=== PATIENT | female | born 1975 | race Caucasian/White ===

== ENCOUNTER → 2021-01-29 15:50 | Outpatient (BNVA) | payer BC, MEDICAID, SELFPAY | PROVIDERS: Visit Provider Obstetrics & Gynecology | DX: N89.8 Other specified noninflammatory disorders of vagina (principal); Z12.4 Encounter for screening for malignant neoplasm of cervix | CPT/HCPCS: 87481; 87512; 87798; 87799; 88175 ==

== ENCOUNTER → 2021-02-17 15:05 | Outpatient (BNVA) | payer BC, MEDICAID, SELFPAY | PROVIDERS: Visit Provider Obstetrics & Gynecology | DX: N85.2 Hypertrophy of uterus (principal); N83.201 Unspecified ovarian cyst, right side | CPT/HCPCS: 76830 ==

== ENCOUNTER 2021-08-11 08:52 | Outpatient (CLI) | payer BC, MEDICAID, SELFPAY ==
--- NOTE | 2021-08-11 09:06 | XR_ITS ---
WS: [id number] XR lumbar spine 2-3V* [id number] REASON FOR EXAM: chronic low back pain with bilateral sciatica FINDINGS: Normal AP and lateral lumbar curvature. No vertebral body compression deformity or focal lesion. Small anterior osteophytes. Intervertebral disc spaces are relatively well-preserved. No significant spondylolisthesis listhesis. No spondylolysis. XR/XR lumbar spine 2-3V* [id number] IMPRESSION: Mild changes of degenerative spondylosis.
[2021-08-11 09:11] LABS: Basophils # 0.1 10^3/uL (0.0-0.1); Basophils % 1.2 %; Eosinophils # 0.3 10^3/uL (0.0-0.8); Eosinophils % 2.9 %; Hematocrit 42.8 % (37.0-47.0); Lymphocytes # 4.1 10^3/uL (0.8-4.8); Lymphocytes % 43.4 %; Mean Corpuscular HGB Conc 32.7 g/dL (30.0-36.0); Mean Corpuscular Hemoglobin 31.5 pg (28.0-34.0); Mean Corpuscular Volume 96.4 fl (81-99); Mean Platelet Volume 9.8 fL (7.4-10.4); Monocytes # 0.6 10^3/uL (0.2-0.9); Monocytes % 6.4 %; Nucleated Red Blood Cells % 0 %; Platelet Count 453 10^3/cmm (130-400); Red Blood Count 4.44 10^6/uL (4.1-5.3); Red Cell Distribution Width 13.5 % (12.1-15.1); White Blood Count 9.4 10^3/uL (4.0-10.0)
[2021-08-11 09:48] LABS: Alanine Aminotransferase 21 U/L (0-33); Albumin Level 4.2 g/dL (3.5-5.2); Alkaline Phosphatase 68 IU/L (35-105); Aspartate Amino Transferase 17 U/L (0-32); Blood Urea Nitrogen 14 mg/dL (6-20); Calcium 9.7 mg/dL (8.5-10.5); Carbon Dioxide 25 mmol/L (22-29); Chloride 105 mmol/L (98-107); Chol HDL Ratio 4.52 mg/dL (0.0-4.40); Cholesterol 235 mg/dL (0-200); Globulin 2.8 g/dL (1.3-4.6); Glucose 122 mg/dL (65-115); HDL Cholesterol 52 mg/dL (60-100); LDL Cholesterol Calculated 131 mg/dL (50-129); LDL HDL Ratio 2.52 RATIO (0.00-3.22); Osmolality Calculated 290 mOsm/kg (285-295); Sodium 139 mmol/L (136-145); Total Bilirubin 0.3 mg/dL (0.15-1.2); Triglycerides 258 mg/dL (0-150)
[2021-08-11 10:37] LABS: Estmated Average Glucose 126
== END 2021-08-11 08:53 | disposition home or self-care (01) ==
LOC: LAB 08:54
PROVIDERS: PCP Family Medicine; Visit Provider Family Medicine
DX: Z13.6 Encounter for screening for cardiovascular disorders (principal); E66.9 Obesity, unspecified; M54.41 Lumbago with sciatica, right side; M54.42 Lumbago with sciatica, left side
CPT/HCPCS: 72100; 80053; 80061; 83036; 85025

== ENCOUNTER 2021-09-22 14:25 | Observation (INO) | payer BC, MEDICAID, SELFPAY ==
[2021-09-21 15:28] VITALS: BMI 38.7
[2021-09-22] VITALS (17 sets, daily range): BP systolic 109–160; BP diastolic 72–98; PULSE 69–108; RESP 15–22; TEMP 36.1–36.6; O2SAT 91–97
[2021-09-22] MEDS: sodium chloride 0.9% 1,000 ML 30 ML IV (09:18)
[2021-09-22] MEDS: ketorolac 30 mg/mL INJ IVP ×2 (09:18→17:55)
[2021-09-22] MEDS: acetaminophen 1,000 MG/100 ML PIGGYBACK 400 MG IV (09:19)
[2021-09-22] MEDS: scopolamine 1.5 Patch 1 PATCH TRANSDERMA (09:20)
[2021-09-22] MEDS: gabapentin 300 mg Capsule PO (09:23)
[2021-09-22] MEDS: CELEcoxib 200 mg Capsule 400 MG PO (09:24)
--- NOTE | 2021-09-22 09:32 | ANES.PREANE2 ---
Pre-Anesthetic Assessment Height/Weight: Height 1.68 m Weight 108.862 kg Temp Pulse Resp BP Pulse Ox 97.0 F L 92 18 145/88 97 09/22/21 09:03 09/22/21 09:03 09/22/21 09:03 09/22/21 09:03 09/22/21 09:03 Preop Diagnosis: enlarged uterus, irregular menses, pelvic pain Operation Date: 09/22/21 10:35 Proposed Procedures p [facility]AVH 38505/n85.2/r10.2/n92.6(Not Applicable) - Rosmery Hartman MD s Salpingectomy(Bilateral) - Rosmery Hartman MD Familial anesthetic complications: None Last intake: Intake Last Liquid Date 09/22/21 Last Liquid Time 08:00 Last Solid Date 09/21/21 Last Solid Time 23:00 Social Tobacco and No alcohol Exam alert, oriented x 3, clear to auscultation bilaterally and regular rate & rhythm Airway Submandibular: within normal limits Cervical ROM: within normal limits Mallampati: Class II Dentition: full Comments: Comments: Has a crown Hx of b/l osteotomy of mandible to extend length of deformed jaw Previously had prolonged dental procedure and took about 2 weeks to return to relax and be pain free History/ROS No significant complaints Pulmonary None reported CV/HEM None reported METS > 4 None reported Hepatic None reported GI None reported Metabolic None reported Musc/skel Fibromyalgia and Osteoarthritis/DJD Neuropsych Bipolar and Neuropathy ADHD Anesthetic Plan ASA status: 2 Other: We discussed risk and benefits of general anesthesia including PONV, sore throat (sometimes severe), corneal abrasion, positioning and peripheral nerve injuries, life threatening allergic reaction, post operative ICU admission requiring prolonged intubation, stroke, heart attack, , and rare incidences of recall. Patient consents to proceed with general anesthesia. Plan GETA with gentle jaw manipulation due to hx of osteotomy of b/l mandible Risk of > 500 ml blood loss (7ml/kg in children): No Medications/Allergies Home Medications Medication Instructions Recorded Confirmed Last Taken Type acetaminophen 500 mg tablet 500 mg PO Q6H PRN 02/26/21 09/22/21 09/21/21 History (Tylenol Extra Strength) ibuprofen 200 mg capsule 200 mg PO Q6H PRN 09/14/21 09/22/21 09/19/21 History naproxen sodium 220 mg capsule 220 mg PO BID PRN 09/14/21 09/22/21 09/19/21 History (Aleve) Allergies Allergy/AdvReac Type Severity Reaction Status Date / Time diphenhydramine Allergy Intermediate hives Verified 09/22/21 08:58 [From Benadryl] egg Allergy Intermediate stomach Verified 09/22/21 08:58 cramps and pains Estrogens Allergy Intermediate migraines Verified 09/22/21 08:58 Influenza Virus Vaccines Allergy Intermediate stomach Verified 09/22/21 08:58 cramps and pains Penicillins Allergy Intermediate fever, Verified 09/22/21 08:58 vomiting Sulfa (Sulfonamide Allergy Mild rash Verified 09/22/21 08:58 Antibiotics) avocado Allergy stomach Verified 09/22/21 08:58 pains and cramps erythromycin base Allergy ALGY-Rash Verified 09/22/21 08:58 Current Medications Generic Name Dose Route Start Last Admin Trade Name Freq PRN Reason Stop Dose Admin Sodium Chloride 1,000 mls @ 30 mls/hr 09/22/21 09:15 09/22/21 09:18 Sodium Chloride 0.9% IV 09/23/21 09:14 30 mls/hr .Q24H AYESHA Administration PFSH Anesthesia Medical History ADHD Bipolar disorder Bulging disc L4 and L5 Degenerative disc disease Lumbar spine Fibromyalgia Psychiatric care Synovial cyst Vertebral L5 Surgical History History of x2 History of cryosurgery 1999 History of mandibular surgery 1993 History of tubal ligation Family History Father CAD (coronary artery disease) Cancer lung, prostate, melanoma Chronic kidney disease (CKD) Diabetes Hyperlipidemia Hypertension Grandfather Cancer Maternal Family/Other Breast cancer Maternal aunt Mother Dementia Alzheimers disease Denies family history of Bleeding disorder Stroke Data Anesthesia Cardiac Studies: No Data to Display
[2021-09-22 09:54] LABS: OR HCG Qualitative Urine Negative (Negative)
[2021-09-22 10:31] LABS: Basophils # 0.1 10^3/uL (0.0-0.1); Eosinophils # 0.3 10^3/uL (0.0-0.8); Eosinophils % 2.9 %; Hematocrit 44.6 % (37.0-47.0); Lymphocytes # 3.4 10^3/uL (0.8-4.8); Lymphocytes % 34.6 %; Mean Corpuscular HGB Conc 33.6 g/dL (30.0-36.0); Mean Corpuscular Hemoglobin 31.1 pg (28.0-34.0); Mean Corpuscular Volume 92.3 fl (81-99); Mean Platelet Volume 10.9 fL (7.4-10.4); Monocytes # 0.6 10^3/uL (0.2-0.9); Monocytes % 6.2 %; Neutrophils # 5.45 10^3/uL (1.8-7.7); Neutrophils % 55.1 %; Nucleated Red Blood Cells % 0 %; Platelet Count 459 10^3/cmm (130-400); Red Blood Count 4.83 10^6/uL (4.1-5.3); Red Cell Distribution Width 13.1 % (12.1-15.1); White Blood Count 9.9 10^3/uL (4.0-10.0)
--- NOTE | 2021-09-22 11:01 | P.HPUD_ITS ---
Surgery/Procedure H&P Update DATE OF PROCEDURE: September 22, 2021 DATE H&P PERFORMED: 09/14/21 H&P UPDATE INFORMATION: I have reviewed H&P completed within last 30 days, I have examined patient prior to procedure and No changes to prior documentation PREOP DIAGNOSIS: enlarged uterus, irregular menses, pelvic pain PLANNED PROCEDURE: Operation Date: 09/22/21 10:35 Proposed Procedures p [facility] 81834/n85.2/r10.2/n92.6(Not Applicable) - Rosmery Hartman MD s Salpingectomy(Bilateral) - Rosmery Hartman MD Related Problem List Diagnoses (1) Pelvic pain: (2) Enlarged uterus: (3) Obesity (BMI 35.0-39.9 without comorbidity):
[2021-09-22 11:15] LABS: Anion Gap 15.9 (5-19); Blood Urea Nitrogen 11 mg/dL (6-20); Carbon Dioxide 23 mmol/L (22-29); Chloride 104 mmol/L (98-107); Glomerular Filtration Rate 108.6 mL/min (90-130); Glucose 121 mg/dL (65-115); Osmolality Calculated 289 mOsm/kg (285-295); Potassium 3.9 mmol/L (3.5-5.1); Sodium 139 mmol/L (136-145)
[2021-09-22] MEDS: vasopressin 20 unit/mL INJ 4 UNIT INJECTION (13:11)
--- NOTE | 2021-09-22 14:02 | P.OP_ITS ---
Operative Report Date of procedure: September 22, 2021 Pre-op diagnosis: Preop Diagnosis enlarged uterus, irregular menses, pelvic pain Post-op diagnosis: same Post-op findings: 9 week sized uterus, pelvic adhesions Procedure done: LAVH, bilateral salpingectomy Specimens removed/disposition: uterus, bilateral fallopian tubes to pathology Surgeon: Rosmery Hartman Anesthesia: General Estimated blood loss (mL): 100 IV fluids (mL): 1,500 Urine output (mL): 100 Complications: none Findings: 9 week sized uterus, pelvic adhesions of omentum and adnexae. taken down with cautery Condition: stable Disposition: PACU Procedure: The patient was taken to the operating room where general anesthesia was administered and found to be adequate. She was prepped and draped in the normal sterile fashion in the dorsal lithotomy position in Davin stirrups. A Rubio catheter was placed. A weighted speculum was placed into the vagina and the anterior lip of the cervix was grasped with a single tooth tenaculum. The Zumi uterine manipulator was placed. The weighted speculum was removed. The gloves were changed and attention was turned to the abdomen. A 5 mm infraumbilical incision was made. Using a 5 mm port with the camera, the port was placed into the abdomen. The abdomen was insufflated. Two low, lateral 5 mm ports were placed on the left and right under direct visualization from the camera. A few minor adhesions were taken down to normalize the pelvis. The right tube was grasped and elevated. Using the laparoscopic cautery, the mesosalpinx was divided between the ovary and tube. The tube was removed. This was performed the same way on the left. The uteroovarian ligaments as well as the round ligaments were ligated. Attention was then turned to the vaginal portion of the procedure. The weighted speculum was placed into the vagina. The zumi manipulator was removed. The single tooth tenaculum was removed and replaced with the zandra's tenaculum. 10 mL of dilute Pitressin was injected at the vesicovaginal junction. A circumferential incision was made at the vesicovaginal junction and the vaginal mucosa reflected cephalad. The posterior peritoneum was entered sharply with the Metzenbaum scissors and the long weighted speculum replaced. Using the Andrew clamps the uterosacral ligaments were clamped cut and suture- ligated. The anterior peritoneum was entered sharply with the metzenbaum scissors. Then sequentially the uterine arteries and cardinal ligaments were clamped cut and suture-ligated. A single-tooth tenaculum was used to deliver the uterus. The remaining segement of the utero-ovarian ligaments were clamped cut and suture-ligated bilaterally and the specimen was removed. There was good hemostasis with only mild bleeding from the cuff. The peritoneum was closed with a pursestring using 2-0 Vicryl. The vaginal cuff was closed with 0 Vicryl in a running locked pattern incorporating the uterosacral ligaments into the lateral aspects of the vaginal cuff. The Rubio catheter was removed and the cystoscope advanced into the bladder. The patient was given pyridium and bilateral spill was noted. There were no injuries or deficits noted in the bladder. The cystoscope was removed and the Rubio was replaced. Vaginal packing was placed for good hemostasis. The trocars were removed from the abdomen. The incisions were closed with 4-0 vicryl and skin glue. The patient tolerated the procedure well. Sponge lap and needle counts were correct x3. She was taken to the recovery room in stable condition.
--- NOTE | 2021-09-22 14:07 | SUR.PHASEI ---
1358 PT TO PACU 5 PT SLEEPS WITH ORAL AIRWAY IN PLACE , GOOD RESP EFFORT NOTED VSS ABDOMEN SOFT WITH 3 SITES WITH SKIN GLUE, VAGINAL PACKING IN PLACE, BILAT SCDS ON AND WORKING VIEIRA TO DD WITH SMALL AMT YELLOW URINE NOTED TO TUBING AND BAG, STATLOCK TO RT INNER THIGH, IV TO LT HAND #18 WITH NS 200ML UP AT MOD RATE PER GRAVITY. IV #20 TO LT FOREARM PIID. PT ID BRACELET TO RT WRIST PT ID'D WITH 2 IDENTIFIERS, WARM BLANKETS TO PT X 2.
--- NOTE | 2021-09-22 14:29 | SUR.PHASEI ---
PT AWAKES TO TOUCH, ORAL AIRWAY OUT, PT DOES NOT SPEAK OR FOLLOW COMMAND, QUICKLY BACK TO SLEEP WITH GOOD RESPIRATORY EFFORT, VSS.
--- NOTE | 2021-09-22 14:37 | SUR.PHASEI ---
PT AWAKES AND ASKS FOR ICE CHIPS, VSS, PT DENIES PAIN AND NAUSEA, PT PLACED ON 3LNC
[2021-09-22] MEDS: dextrose 5%-lactated ringers 1,000 ML 125 ML IV (15:31)
--- NOTE | 2021-09-22 17:45 | ANE.PACU2 ---
Inpatient post-anesthesia follow up: Airway intact: Yes Vital signs: Temperature 97.7 F Pulse Rate 72 Respiratory Rate 18 Blood Pressure 143/98 Pulse Oximetry 94 Oxygen Delivery Me thod Nasal Cannula Oxygen Flow Rate 3 Fraction of Inspir ed Oxygen Hydration adequate: Yes Nausea and vomiting: No Pain level: 1 Mental status: Baseline
[2021-09-22] MEDS: phenazopyridine 100 mg Tablet 200 MG PO ×2 (17:55→21:11)
[2021-09-22] MEDS: docusate sodium 100 mg Capsule PO (17:56)
[2021-09-22] MEDS: nicotine 14 mg Patch 1 PATCH TRANSDERMA (17:56)
[2021-09-22] MEDS: acetaminophen 325 mg Tablet 650 MG PO (21:12)
[2021-09-23] MEDS: ketorolac 30 mg/mL INJ IVP (00:26)
[2021-09-23 05:15] VITALS: BP 154/81; PULSE 82; TEMP 36.8; O2SAT 95
[2021-09-23 05:33] LABS: Hematocrit 41.5 % (37.0-47.0); Hemoglobin 13.6 g/dL (11.5-15.3); Mean Corpuscular HGB Conc 32.8 g/dL (30.0-36.0); Mean Corpuscular Hemoglobin 31.1 pg (28.0-34.0); Mean Corpuscular Volume 94.7 fl (81-99); Mean Platelet Volume 10.3 fL (7.4-10.4); Platelet Count 415 10^3/cmm (130-400); Red Blood Count 4.38 10^6/uL (4.1-5.3); Red Cell Distribution Width 12.9 % (12.1-15.1); White Blood Count 21.7 10^3/uL (4.0-10.0)
[2021-09-23] MEDS: docusate sodium 100 mg Capsule PO (09:05)
[2021-09-23] MEDS: ibuprofen 800 mg tablet PO (09:06)
[2021-09-23] MEDS: phenazopyridine 100 mg Tablet 200 MG PO (09:10)
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
[2021-09-23 11:00] VITALS: BP 133/84; PULSE 89; RESP 16; TEMP 36.8; O2SAT 98
== END 2021-09-23 11:00 | disposition home or self-care (01) ==
LOC: OBGYN 14:42
PROVIDERS: Admitting Provider Obstetrics & Gynecology; PCP Family Medicine; Visit Provider Obstetrics & Gynecology
PROC: 0UT9FZZ Resection of Uterus, Via Natural or Artificial Opening With Percutaneous Endoscopic Assistance (ICD-10-PCS; CPT 58552; principal; 2021-09-22 10:25)
PROC: (CPT 58700; 2021-09-22 10:25)
DX: R10.2 Pelvic and perineal pain (principal); N85.2 Hypertrophy of uterus; E66.9 Obesity, unspecified; Z68.38 Body mass index [BMI] 38.0-38.9, adult; M79.7 Fibromyalgia; Z82.49 Family history of ischemic heart disease and other diseases of the circulatory system; Z83.3 Family history of diabetes mellitus
CPT/HCPCS: 58552; 36415; 80048; 81025; 84703; 85025; 85027; 86850; 86900; 87086; 88307; G0378; J0690; J1100; J1170; J1200; J1885; J1940; J2250; J2405; J3010; J3490; J7030

== ENCOUNTER → 2021-10-02 11:24 | Outpatient (BNVA) | payer BC, MEDICAID, SELFPAY | PROVIDERS: PCP Family Medicine; Visit Provider Psychiatry & Neurology Psychiatry | DX: F90.9 Attention-deficit hyperactivity disorder, unspecified type (principal); F43.20 Adjustment disorder, unspecified | CPT/HCPCS: 90792 ==

== ENCOUNTER 2021-10-15 15:36 | Outpatient (CLI) | payer BC, MEDICAID, SELFPAY ==
--- NOTE | 2021-10-15 16:00 | MR_ITS ---
WS: [id number] MRI LUMBAR SPINE NONCONTRAST HISTORY: low back pain with sciatica COMPARISON: None available. TECHNIQUE: Sagittal and axial multisequence imaging is submitted. Normal lumbar alignment with no compression fractures or marrow edema. Mild disc desiccation at L4-5 without loss of height. Conus terminates normally at L1-2 disc level. L1-L2: Normal. L2-L3: Normal. L3-L4: Very minimal disc bulging. No stenosis. L4-L5: Mild annular disc bulging without focal disc protrusion. Mild ligamentum flavum hypertrophy an d facet arthritis. There is mild encroachment into the neural foramen and subarticular recesses. Very minimal encroachment upon the traversing L5 nerve roots but no displacement. L5-S1: Mild annular disc bulging with no stenosis. MR/MR lumbar spine wo con* [id number] IMPRESSION: 1. No high-grade stenosis. 2. Very minimal encroachment upon the traversing L5 nerve roots. No displaceme nt or high-grade stenosis. 3. Minimal disc desiccation at L4-5.
== END 2021-10-15 15:37 | disposition home or self-care (01) ==
LOC: RAD 15:38
PROVIDERS: PCP Family Medicine; Visit Provider Family Medicine
DX: M51.26 Other intervertebral disc displacement, lumbar region (principal); M54.40 Lumbago with sciatica, unspecified side
CPT/HCPCS: 72148

== ENCOUNTER → 2021-11-04 10:21 | Outpatient (BNVA) | payer BC, MEDICAID, SELFPAY | PROVIDERS: PCP Family Medicine; Visit Provider Anesthesiology Pain Medicine | DX: M47.816 Spondylosis without myelopathy or radiculopathy, lumbar region (principal); M51.16 Intervertebral disc disorders with radiculopathy, lumbar region; M79.604 Pain in right leg; M79.605 Pain in left leg; F17.210 Nicotine dependence, cigarettes, uncomplicated | CPT/HCPCS: 99204 ==

== ENCOUNTER → 2021-11-25 12:59 | Outpatient (BNVA) | payer BC, MEDICAID, SELFPAY | PROVIDERS: PCP Family Medicine; Visit Provider Anesthesiology Pain Medicine | DX: F17.210 Nicotine dependence, cigarettes, uncomplicated (principal); M47.816 Spondylosis without myelopathy or radiculopathy, lumbar region | CPT/HCPCS: 64493; 64494; 64495; J3490 ==

== ENCOUNTER → 2021-12-09 12:49 | Outpatient (BNVA) | payer BC, MEDICAID, SELFPAY | PROVIDERS: PCP Family Medicine; Visit Provider Anesthesiology Pain Medicine | DX: F17.210 Nicotine dependence, cigarettes, uncomplicated (principal); M47.816 Spondylosis without myelopathy or radiculopathy, lumbar region | CPT/HCPCS: 64493; 64494; 64495; J3490 ==

== ENCOUNTER 2021-12-17 13:40 | Outpatient (CLI) | payer BC, MEDICAID, SELFPAY ==
--- NOTE | 2021-12-17 13:50 | XRR_ITS ---
PROCEDURE INFORMATION: Exam: XR Right Shoulder Exam date and time: 12/17/2021 1:56 PM Age: 46 years old Clinical indication: Pain; Shoulder; Right; Additional info: Chronic right shoulder pain TECHNIQUE: Imaging protocol: Radiologic exam of the Right shoulder. Views: 2 or more views. COMPARISON: No relevant prior studies available. FINDINGS: Bones/joints: Normal. Soft tissues: Normal. XR/XR shoulder RT min 2V* [id number] IMPRESSION: No acute findings.
== END 2021-12-17 13:41 | disposition home or self-care (01) ==
PROVIDERS: PCP Family Medicine; Visit Provider Family Medicine
DX: M25.511 Pain in right shoulder (principal); G89.29 Other chronic pain
CPT/HCPCS: 73030

== ENCOUNTER → 2021-12-23 10:51 | Outpatient (BNVA) | payer BC, MEDICAID, SELFPAY | PROVIDERS: PCP Family Medicine; Visit Provider Anesthesiology Pain Medicine | DX: M79.604 Pain in right leg (principal); M79.605 Pain in left leg; F17.210 Nicotine dependence, cigarettes, uncomplicated; M47.816 Spondylosis without myelopathy or radiculopathy, lumbar region; M51.16 Intervertebral disc disorders with radiculopathy, lumbar region | CPT/HCPCS: 99214 ==

== ENCOUNTER → 2021-12-28 15:23 | Outpatient (BNVA) | payer BC, MEDICAID, SELFPAY | PROVIDERS: PCP Family Medicine; Visit Provider Obstetrics & Gynecology | DX: R39.9 Unspecified symptoms and signs involving the genitourinary system (principal) | CPT/HCPCS: 81000; 87070; 87075; 87205 ==

== ENCOUNTER → 2022-01-04 12:52 | Outpatient (BNVA) | payer BC, MEDICAID, SELFPAY | PROVIDERS: PCP Family Medicine; Referring Provider Family Medicine; Visit Provider Specialist | DX: R20.0 Anesthesia of skin (principal); R20.2 Paresthesia of skin | CPT/HCPCS: 95908; 95909 ==

== ENCOUNTER → 2022-01-06 14:16 | Outpatient (BNVA) | payer BC, MEDICAID, SELFPAY | PROVIDERS: PCP Family Medicine; Visit Provider Orthopaedic Surgery | DX: M19.011 Primary osteoarthritis, right shoulder (principal) | CPT/HCPCS: 99203 ==

== ENCOUNTER → 2022-01-20 13:18 | Outpatient (BNVA) | payer BC, MEDICAID, SELFPAY | PROVIDERS: PCP Family Medicine; Visit Provider Anesthesiology Pain Medicine | DX: F17.210 Nicotine dependence, cigarettes, uncomplicated (principal); M47.816 Spondylosis without myelopathy or radiculopathy, lumbar region | CPT/HCPCS: 64635; 64636 ==

== ENCOUNTER → 2022-02-24 07:35 | Outpatient (BNVA) | payer BC, SELFPAY | PROVIDERS: PCP Family Medicine; Visit Provider Family Medicine | DX: E66.9 Obesity, unspecified (principal); F17.219 Nicotine dependence, cigarettes, with unspecified nicotine-induced disorders; F31.9 Bipolar disorder, unspecified; G57.93 Unspecified mononeuropathy of bilateral lower limbs; G89.29 Other chronic pain; R51.9 Headache, unspecified; R53.83 Other fatigue; Z76.89 Persons encountering health services in other specified circumstances; Z13.6 Encounter for screening for cardiovascular disorders | CPT/HCPCS: 80053; 80061; 83036; 84439; 84443; 85025; 85651; 86140 ==

== ENCOUNTER 2022-12-03 14:07 | Outpatient (CLI) | payer BC, SELFPAY ==
--- NOTE | 2022-12-03 14:11 | MM_ITS ---
WS: [id number] BILATERAL 3D TOMOSYNTHESIS DIGITAL SCREENING MAMMOGRAPHY WITH CAD CLINICAL INFORMATION: Z12.31 - Encounter for screening mammogram for malignant ... HISTORY: Screening mammogram. Bilateral breast soreness COMPARISON: 2019. TECHNIQUE: Bilateral CC and MLO views. FINDINGS: Scattered fibroglandular densities bilaterally. No suspicious focal mass, asymmetry, calcifications, or architectural distortion. No evidence of malignancy. Incidental punctate calcifications. Biopsy cl ip RIGHT breast. MM/[place] [id number] IMPRESSION: BI-RADS: 2-Benign FOLLOW UP: 1 Year Follow-up Recommend return to annual screening mammography.
== END 2022-12-03 14:08 | disposition home or self-care (01) ==
LOC: RAD 14:07
PROVIDERS: PCP Family Medicine; Visit Provider Obstetrics & Gynecology
DX: Z12.31 Encounter for screening mammogram for malignant neoplasm of breast (principal)
CPT/HCPCS: 77063; 77067

== ENCOUNTER 2023-02-09 09:43 | Outpatient (CLI) | payer BC, MEDICAID, SELFPAY ==
--- NOTE | 2023-02-09 09:49 | CT_ITS ---
WS: [id number] CT NECK TECHNIQUE: Contrast-enhanced CT of the neck with coronal and sagittal reformatted images. CLINICAL INFORMATION: LOCALIZED SWELLING,MASS LUMP, HEAD COMPARISON: None. DLP: 246.[address] scans at [facility] use at least one of these dose optimization techniques: automated e xposure control; mA and/or kV adjustment per patient size (includes targeted exams where dose is matc hed to clinical indication); or iterative reconstruction. FINDINGS: Paranasal sinuses are well aerated. Mastoid air cells are well aerated. Normal posterior nasopharynx. Normal parapharyngeal fat. Parotid glands are normal. Normal submandibular glands. No evidence of henley praglottic or glottic mass. Normal subglottic airway. Normal thyroid gland enhancement. Deep to the palpable marker overlying the RIGHT mandible normal underlying vessels. No evidence of henley bcutaneous mass or lesion. No suspicious findings in this area. Normal underlying mandible with posto perative changes. Prominent 11 mm LEFT jugulodigastric lymph node within normal limits. Few prominent submandibular spa ce lymph nodes. No pathologic cervical lymphadenopathy. IMPRESSION: 1. Deep to the palpable marker overlying the RIGHT mandible normal underlying vessels and soft tissu es. No suspicious lesions in this area. 2. Normal salivary glands. 3. No evidence of supraglottic or glottic mass. 4. A few prominent upper cervical chain lymph nodes likely reactive. Largest LEFT jugulodigastric me asuring 11 mm in short axis dimension. 5. No other suspicious findings.
[2023-02-09] MEDS: iohexol 350 mg/mL 500 mL Btl (per mL) IV (10:44)
== END 2023-02-09 09:44 | disposition home or self-care (01) ==
PROVIDERS: PCP Family Medicine; Visit Provider Specialist
DX: R22.0 Localized swelling, mass and lump, head (principal)
CPT/HCPCS: 70491; Q9967

== ENCOUNTER 2023-05-09 07:36 | Outpatient (CLI) | payer BC, SELFPAY ==
--- NOTE | 2023-05-09 07:42 | XR_ITS ---
WS: [id number] Exam: XR thoracic spine 3V* [id number] Date/Time of Exam: 05/09/2023 7:55 AM Reason For Exam: M54.6 - Pain in thoracic spine No acute fracture or dislocation. No significant scoliosis. Normal paraspinal soft tissues. Minimal s pondylosis. IMPRESSION: 1. Minimal degenerative changes otherwise unremarkable T-spine study.
--- NOTE | 2023-05-09 07:42 | XR_ITS ---
WS: [id number] Exam: XR cervical spine 3V* [id number] Date/Time of Exam: 05/09/2023 7:55 AM Reason For Exam: M54.2 - Cervicalgia No fracture or dislocation. Cervical alignment is normal. Posterior elements are intact. Disc spaces are preserved. Normal paraspinal soft tissues. Hardware noted in the mandible. IMPRESSION: 1. Normal C-spine study.
--- NOTE | 2023-05-09 07:42 | XR_ITS ---
WS: [email or web address] Exam: XR lumbar spine min 4V [id number] Date/Time of Exam: 05/09/2023 7:55 AM Reason For Exam: M54.50 - Low back pain, unspecified Comparison 08/11/2021. No fracture or dislocation. Disc spaces are preserved. Posterior elements are intact. Slight spondylo sis. No flexion or extension instability. IMPRESSION: 1. Minimal degenerative change. No flexion or extension instability.
== END 2023-05-09 07:37 | disposition home or self-care (01) ==
LOC: RAD 07:37
PROVIDERS: PCP Family Medicine; Visit Provider Anesthesiology Pain Medicine
DX: M54.2 Cervicalgia (principal); G89.29 Other chronic pain; M47.814 Spondylosis without myelopathy or radiculopathy, thoracic region; M47.816 Spondylosis without myelopathy or radiculopathy, lumbar region
CPT/HCPCS: 72040; 72072; 72110

== ENCOUNTER → 2023-05-10 11:21 | Outpatient (BNVA) | payer BC, SELFPAY | PROVIDERS: PCP Family Medicine; Visit Provider Family Medicine | DX: E78.2 Mixed hyperlipidemia (principal); R73.09 Other abnormal glucose; Z12.11 Encounter for screening for malignant neoplasm of colon | CPT/HCPCS: 80053; 80061; 83036; 84443; 85025 ==

== ENCOUNTER → 2023-05-12 16:58 | Outpatient (BNVA) | payer BC, SELFPAY | PROVIDERS: PCP Family Medicine; Visit Provider Obstetrics & Gynecology | DX: E78.2 Mixed hyperlipidemia (principal) | CPT/HCPCS: 83001 ==

== ENCOUNTER → 2023-07-24 11:17 | Outpatient (BNVA) | payer BC, SELFPAY | PROVIDERS: PCP Family Medicine; Visit Provider Nurse Practitioner | DX: J02.9 Acute pharyngitis, unspecified (principal) | CPT/HCPCS: 87071; 87880 ==

== ENCOUNTER → 2023-08-09 13:48 | Outpatient (BNVA) | payer BC, SELFPAY | PROVIDERS: PCP Family Medicine; Visit Provider Nurse Practitioner Psychiatric/Mental Health | DX: F90.0 Attention-deficit hyperactivity disorder, predominantly inattentive type (principal); Z79.899 Other long term (current) drug therapy | CPT/HCPCS: 80307 ==

== ENCOUNTER 2023-08-11 09:18 | Day surgery (SDC) | payer BC, MEDICAID, SELFPAY ==
--- NOTE | 2023-08-11 09:09 | P.HP_ITS ---
Same Day Surgery H&P Indication for Procedure/HPI DATE OF PROCEDURE: August 11, 2023 CHIEF COMPLAINT/INDICATIONFOR SURGICAL PROCEDURE: need for screening colonoscopy PREOP DIAGNOSIS: need for screening colonoscopy PLANNED PROCEDURE: Operation Date: 08/11/23 10:20 Proposed Procedures p [id number] colonoscopy G0121 screen colon a risk : Z12.11(Not Applicable) - Dusty Hopkins MD Medications/Allergies* Home Medications Medication Instructions Recorded Confirmed Type melatonin 5 mg tablet 2.5 mg PO DAILY PRN Sleep 05/18/22 08/09/23 History Allergies/Adverse Reactions Allergy/AdvReac Type Severity Reaction Status Date / Time diphenhydramine Allergy Intermediate hives Verified 08/09/23 12:54 [From Benadryl] egg Allergy Intermediate stomach Verified 08/09/23 12:54 cramps and pains Estrogens Allergy Intermediate migraines Verified 08/09/23 12:54 Influenza Virus Vaccines Allergy Intermediate stomach Verified 08/09/23 12:54 cramps and pains Penicillins Allergy Intermediate fever, Verified 08/09/23 12:54 vomiting Sulfa (Sulfonamide Allergy Mild rash Verified 08/09/23 12:54 Antibiotics) adhesive tape Allergy Unknown Unknown Verified 08/09/23 12:54 avocado Allergy stomach Verified 08/09/23 12:54 pains and cramps erythromycin base Allergy ALGY-Rash Verified 08/09/23 12:54 Pertinent History/Comorbid Conditions* Medical History (Updated 08/09/23 @ 13:31 by Abbey Guadarrama [facility]) Chronic post-traumatic stress disorder Autism spectrum disorder Nicotine dependence due to vaping tobacco product Generalized anxiety disorder with panic attacks ADHD (attention deficit hyperactivity disorder), inattentive type Diagnosed in 2008 Psychiatric care Bulging disc L4 and L5 Synovial cyst Vertebral L5 Fibromyalgia Degenerative disc disease Lumbar spine Surgical History (Updated 06/25/21 @ 10:49 by Caitlyn Benitez DO) History of mandibular surgery 1993 History of cryosurgery 1999 History of x2 History of tubal ligation Family History (Updated 06/25/21 @ 10:38 by Linda Coleman LPN) Diabetes Father CAD (coronary artery disease) Father Alzheimers disease Mother Dementia Mother Hyperlipidemia Father Chronic kidney disease (CKD) Father Breast cancer Family/Other Maternal aunt Cancer Father lung, prostate, melanoma Grandfather Maternal Hypertension Father Denies family history of Bleeding disorder Stroke Social History Smoking and tobacco/nicotine status: former use of tobacco/nicotine Quit status (tobacco/nicotine): considering quitting Second hand smoke exposure: No Alcohol intake: never Substance/Drug Use: former Pertinent Exam Findings alert, oriented x 3, clear to auscultation bilaterally and regular rate & rhythm Recommendations Surgery/Procedure today Coding Level of Care Code Acute Code for [facility] Brenda
[2023-08-11 09:21] VITALS: BP 143/94; PULSE 92; RESP 18; TEMP 36.1; O2SAT 91
[2023-08-11] MEDS: sodium chloride 0.9% 1,000 ML 30 ML IV (09:43)
--- NOTE | 2023-08-11 10:00 | ANES.PREANE2 ---
Pre-Anesthetic Assessment Height/Weight: Height 1.68 m Weight 111.13 kg Temp Pulse Resp BP Pulse Ox O2 Del Method 97.0 F L 92 18 143/94 91 Room Air 08/11/23 09:21 08/11/23 09:21 08/11/23 09:21 08/11/23 09:21 08/11/23 09:21 08/11/23 09:21 Preop Diagnosis: need for screening colonoscopy Operation Date: 08/11/23 10:20 [place] Procedures p [id number] colonoscopy G0121 screen colon a risk : Z12.11(Not Applicable) - Dusty Hopkins MD Was Beta Harvey taken within 24 hours: N/A Was Clonidine taken within 24 hours: N/A Last intake: Intake Last Liquid Date 08/10/23 Last Liquid Time 23:55 Last Solid Date 08/09/23 Last Solid Time 23:45 Last Intake: 22:00 Social No alcohol and No tobacco Exam alert, oriented x 3, clear to auscultation bilaterally and regular rate & rhythm Airway Submandibular: within normal limits Cervical ROM: within normal limits Mallampati: Class II History/ROS No significant history except as noted Pulmonary None reported CV/HEM None reported None reported hyst section x 2 Hepatic None reported GI None reported Metabolic None reported Musc/skel None reported jaw surgery right ganglion removal Neuropsych None reported Anesthetic Plan ASA status: 2 Anesthesia: MAC Risk of > 500 ml blood loss (7ml/kg in children): Yes, adequate IV access and fluids planned Medications/Allergies Home Medications Medication Instructions Recorded Confirmed Last Taken Type melatonin 5 mg tablet 2.5 mg PO DAILY PRN Sleep 05/18/22 08/09/23 08/09/23 History tizanidine 4 mg tablet 8 mg (2 x 4 mg) PO BID PRN muscle 04/25/23 08/09/23 Unknown Rx spasticity #60 tabs conjugated estrogens 0.45 mg 0.45 mg PO DAILY 12 months #90 tabs 07/21/23 08/09/23 08/10/23 Rx tablet (Premarin) dextroamphetamine-amphetamine ER 20 mg PO QAM 30 days #30 caps 08/09/23 08/11/23 08/10/23 Rx 20 mg 24hr capsule,extend release (Adderall XR) Allergies Allergy/AdvReac Type Severity Reaction Status Date / Time diphenhydramine Allergy Intermediate hives Verified 08/09/23 12:54 [From Benadryl] egg Allergy Intermediate stomach Verified 08/09/23 12:54 cramps and pains Estrogens Allergy Intermediate migraines Verified 08/09/23 12:54 Influenza Virus Vaccines Allergy Intermediate stomach Verified 08/09/23 12:54 cramps and pains Penicillins Allergy Intermediate fever, Verified 08/09/23 12:54 vomiting Sulfa (Sulfonamide Allergy Mild rash Verified 08/09/23 12:54 Antibiotics) adhesive tape Allergy Unknown Unknown Verified 08/09/23 12:54 avocado Allergy stomach Verified 08/09/23 12:54 pains and cramps erythromycin base Allergy ALGY-Rash Verified 08/09/23 12:54 Current Medications Generic Name Dose Route Start Last Admin Trade Name Freq PRN Reason Stop Dose Admin Sodium Chloride 1,000 mls @ 30 mls/hr 08/11/23 09:30 08/11/23 09:43 Sodium Chloride 0.9% IV 30 mls/hr .Q24H AYESHA Administration PFSH Anesthesia Medical History (Updated 08/09/23 @ 13:31 by Abbey Guadarrama, [facility]) Chronic post-traumatic stress disorder Autism spectrum disorder Nicotine dependence due to vaping tobacco product Generalized anxiety disorder with panic attacks ADHD (attention deficit hyperactivity disorder), inattentive type Diagnosed in 2007 Psychiatric care Bulging disc L4 and L5 Synovial cyst Vertebral L5 Fibromyalgia Degenerative disc disease Lumbar spine Surgical History History of mandibular surgery 1993 History of cryosurgery 1999 History of x2 History of tubal ligation Family History Father CAD (coronary artery disease) Cancer lung, prostate, melanoma Chronic kidney disease (CKD) Diabetes Hyperlipidemia Hypertension Grandfather Cancer Maternal Family/Other Breast cancer Maternal aunt Mother Dementia Alzheimers disease Denies family history of Bleeding disorder Stroke Social History Smoking and tobacco/nicotine status: former use of tobacco/nicotine Quit status (tobacco/nicotine): considering quitting Second hand smoke exposure: No Alcohol intake: never Substance/Drug Use: former Female Reproductive History Para: 3 Spontaneous abortions: No Data Anesthesia Cardiac Studies: No Data to Display
--- NOTE | 2023-08-11 10:03 | P.ANESASSM_ITS ---
Pre-Anesthetic Assessment Height/Weight: Height 1.68 m Weight 111.13 kg Temp Pulse Resp BP Pulse Ox O2 Del Method 97.0 F L 92 18 143/94 91 Room Air 08/11/23 09:21 08/11/23 09:21 08/11/23 09:21 08/11/23 09:21 08/11/23 09:21 08/11/23 09:21 Preop Diagnosis: need for screening colonoscopy Operation Date: 08/11/23 10:20 Proposed Procedures p [id number] colonoscopy G0121 screen colon a risk : Z12.11(Not Applicable) - Dusty Hopkins MD Was Beta Harvey taken within 24 hours: N/A Was Clonidine taken within 24 hours: N/A Last intake: Intake Last Liquid Date 08/10/23 Last Liquid Time 23:55 Last Solid Date 08/09/23 Last Solid Time 23:45 Last Intake: 22:00 Social No alcohol and No tobacco Exam alert, oriented x 3, clear to auscultation bilaterally and regular rate & rhythm Airway Submandibular: within normal limits Cervical ROM: within normal limits Mallampati: Class II History/ROS No significant history except as noted Pulmonary None reported CV/HEM None reported None reported hyst csection x 2 Hepatic None reported GI None reported Metabolic None reported Musc/skel None reported right ganglion cyst removal Neuropsych None reported Anesthetic Plan ASA status: 2 Anesthesia: MAC Risk of > 500 ml blood loss (7ml/kg in children): Yes, adequate IV access and fluids planned Medications/Allergies Home Medications Medication Instructions Recorded Confirmed Last Taken Type melatonin 5 mg tablet 2.5 mg PO DAILY PRN Sleep 05/18/22 08/09/23 08/09/23 Hi story tizanidine 4 mg tablet 8 mg (2 x 4 mg) PO BID PRN muscle 04/25/23 08/09/23 Unknown Rx spasticity #60 tabs conjugated estrogens 0.45 mg 0.45 mg PO DAILY 12 months #90 tabs 07/21/2307/2808/10/23 Rx tablet (Premarin) dextroamphetamine-amphetamine ER 20 mg PO QAM 30 days #30 caps 08/09/23 08/11/23 08/10/23 Rx 20 mg 24hr capsule,extend release (Adderall XR) Allergies Allergy/AdvReac Type Severity Reaction Status Date / Time diphenhydramine Allergy Intermediate hives Verified 08/09/23 12:54 [From Benadryl] egg Allergy Intermediate stomach Verified 08/09/23 12:54 cramps and pains Estrogens Allergy Intermediate migraines Verified 08/09/23 12:54 Influenza Virus Vaccines Allergy Intermediate stomach Verified 08/09/23 12:54 cramps and pains Penicillins Allergy Intermediate fever, Verified 08/09/23 12:54 vomiting Sulfa (Sulfonamide Allergy Mild rash Verified 08/09/23 12:54 Antibiotics) adhesive tape Allergy Unknown Unknown Verified 08/09/23 12:54 avocado Allergy stomach Verified 08/09/23 12:54 pains and cramps erythromycin base Allergy ALGY-Rash Verified 08/09/23 12:54 Current Medications Generic Name Dose Route Start Last Admin Trade Name Freq PRN Reason Stop Dose Admin Sodium Chloride 1,000 mls @ 30 mls/hr 08/11/23 09:30 08/11/23 09:43 Sodium Chloride 0.9% IV 30 mls/hr .Q24H AYESHA Administration PFSH Anesthesia Medical History (Updated 08/09/23 @ 13:31 by Abbey Guadarrama, [facility]) Chronic post-traumatic stress disorder Autism spectrum disorder Nicotine dependence due to vaping tobacco product Generalized anxiety disorder with panic attacks ADHD (attention deficit hyperactivity disorder), inattentive type Diagnosed in 2007 Psychiatric care Bulging disc L4 and L5 Synovial cyst Vertebral L5 Fibromyalgia Degenerative disc disease Lumbar spine Surgical History History of mandibular surgery 1993 History of cryosurgery 1999 History of x2 History of tubal ligation Family History Father CAD (coronary artery disease) Cancer lung, prostate, melanoma Chronic kidney disease (CKD) Diabetes Hyperlipidemia Hypertension Grandfather Cancer Maternal Family/Other Breast cancer Maternal aunt Mother Dementia Alzheimers disease Denies family history of Bleeding disorder Stroke Social History Smoking and tobacco/nicotine status: former use of tobacco/nicotine Quit status (tobacco/nicotine): considering quitting Second hand smoke exposure: No Alcohol intake: never Substance/Drug Use: former Female Reproductive History Para: 3 Spontaneous abortions: No Data Anesthesia Cardiac Studies: No Data to Display
[2023-08-11 10:54] VITALS: BP 151/88; PULSE 94; RESP 18; TEMP 36.5; O2SAT 97
[2023-08-11 11:04] VITALS: BP 146/96; PULSE 79; RESP 18; TEMP 36.3; O2SAT 99
--- NOTE | 2023-08-11 11:25 | ANE.PACU2 ---
Inpatient post-anesthesia follow up: Airway intact: Yes Vital signs: Temperature 97.4 F Pulse Rate 79 Respiratory Rate 18 Blood Pressure 146/96 Pulse Oximetry 99 Oxygen Delivery Me thod Room Air Oxygen Flow Rate Fraction of Inspir ed Oxygen Hydration adequate: Yes Nausea and vomiting: No Pain level: 1 Mental status: Baseline
== END 2023-08-11 11:23 | disposition home or self-care (01) ==
PROVIDERS: PCP Family Medicine; Visit Provider Surgery
PROC: 0DJD8ZZ Inspection of Lower Intestinal Tract, Via Natural or Artificial Opening Endoscopic (ICD-10-PCS; CPT 45378; principal; 2023-08-11 10:20)
DX: Z12.11 Encounter for screening for malignant neoplasm of colon (principal); D12.5 Benign neoplasm of sigmoid colon; F84.0 Autistic disorder; F17.200 Nicotine dependence, unspecified, uncomplicated; F41.1 Generalized anxiety disorder; F90.9 Attention-deficit hyperactivity disorder, unspecified type; M79.7 Fibromyalgia
CPT/HCPCS: 45380; 88305; J2704; J7030

== ENCOUNTER 2024-01-23 08:45 | Outpatient (CLI) | payer BC, MEDICAID, SELFPAY ==
--- NOTE | 2024-01-23 09:00 | MM_ITS ---
WS: [id number] BILATERAL SCREENING DIGITAL TOMOSYNTHESIS MAMMOGRAM WITH CAD HISTORY: Z12.31 - Encounter for screening mammogram for malignant ... COMPARISON: 12/03/2022, 09/21/2018 Bilateral CC and MLO views with tomosynthesis and synthetic mammography submitted. Computer aided det ection analyzed. Breast composition: There are scattered areas of fibroglandular density. No suspicious masses, microc alcifications or architectural distortion. Biopsy clip in the anterior RIGHT breast near 6:00. No ass ociated mass or calcification. Benign calcifications otherwise scattered throughout each breast. MM/[place] [id number] IMPRESSION: BI-RADS: 2-Benign FOLLOW UP: 1 Year Follow-up
== END 2024-01-23 08:46 | disposition home or self-care (01) ==
LOC: RAD 08:45
PROVIDERS: PCP Family Medicine; Visit Provider Nurse Practitioner Women's Health
DX: Z12.31 Encounter for screening mammogram for malignant neoplasm of breast (principal); R92.323 Mammographic fibroglandular density, bilateral breasts; R92.1 Mammographic calcification found on diagnostic imaging of breast
CPT/HCPCS: 77063; 77067